=== PATIENT | male | born 1955 ===

== ENCOUNTER 2024-04-23 20:14 | Emergency (ER) | payer SELFPAY ==
[2024-04-23 20:15] VITALS: BP 169/114; PULSE 99; RESP 19; TEMP 36.7; O2SAT 100
--- NOTE | 2024-04-23 22:26 | PC.NURSE ---
pt told this RN he was starting to feel better and was leaving
== END 2024-04-23 22:30 | disposition left against medical advice (07) ==
DX: H57.12 Ocular pain, left eye (principal)
CPT/HCPCS: 99199